=== PATIENT | female | born 1970 | race Caucasian/White ===

== ENCOUNTER 2020-04-13 23:25 | Emergency (ER) | payer SELFPAY ==
[~2020-04-13] VITALS: Ht 170.2 cm; Wt 78.9 kg
--- NOTE | 2020-04-14 00:29 | NUR ---
FIRST CALL OUT TO LOBBY AND RESTROOM
== END 2020-04-14 01:31 | disposition left against medical advice (07) ==
LOC: ER 23:25
DX: S49.90XA Unspecified injury of shoulder and upper arm, unspecified arm, initial encounter (principal)